=== PATIENT | male | born 1980 | race Caucasian/White ===

== ENCOUNTER 2021-04-02 00:23 | Emergency (ER) | payer OTHER ==
[2021-04-02] MEDS ORDERED: KETOROLAC TROMETHAMINE 60 MG/2 ML VIAL IM ONE (00:48)
[2021-04-02 00:52] VITALS: BP 122/86; PULSE 96; TEMP 99; BMI 32.8
[2021-04-02] MEDS ORDERED: KETOROLAC TROMETHAMINE 60 MG/2 ML VIAL ONE (00:54)
== END 2021-04-02 01:28 | disposition home or self-care (01) ==
LOC: FER 00:23
PROC: 3E0233Z Introduction of Anti-inflammatory into Muscle, Percutaneous Approach (ICD-10-PCS; principal; 2021-04-02)
DX: G56.82 Other specified mononeuropathies of left upper limb (principal)
CPT/HCPCS: 99284-25